=== PATIENT | male | born 1965 | race Caucasian/White ===

== ENCOUNTER 2019-09-30 05:27 | Inpatient (IN) | payer OTHER ==
--- NOTE | 2019-09-30 05:44 | PDOC ---
History of Present Illness - General Chief Complaint: Pain Stated Complaint: ABDOMINAL PAIN Time Seen by Provider: 09/30/19 05:28 - History of Present Illness Initial Comments: 09/30/19 05:45 This 53-year-old man with a history of HTN/HLD presents with few hour history of epigastric/periumbilical pain. Patient states that he was awakened approximately 2 AM with the pain. He had no discomfort when he went to bed at 11 PM. He denies nausea/vomiting/diarrhea. He has had no recent fever or chills. Pain is steady and does not radiate to his back or legs. No recent unusual food ingestion or travel. He had taken "Tums" at home without relief. No chest pain or shortness of breath. No history of coronavirus infection. Medications as noted below Non-smoker No daily alcohol/other recreational drug No known allergies Past History - Medical History Allergies/Adverse Reactions: Allergies Allergy/AdvReac Type Severity Reaction Status Date / Time No Known Allergies Allergy Verified 09/30/19 05:28 Home Medications: Ambulatory Orders Atorvastatin Ca [Lipitor] 20 mg PO DAILY 09/30/19 Furosemide [Lasix] 20 mg PO DAILY 09/30/19 Metoprolol Succinate [Toprol Xl] 200 mg PO DAILY 09/30/19 Olmesartan Medoxomil 40 mg PO DAILY 09/30/19 HTN: Yes (on medication) Hypercholesterolemia: Yes (No medication just "diet" and exercise) - Surgical History Orthopedic Surgery: Yes (2 lower back surgeries) - Psycho-Social/Smoking History Smoking Status: No Smoking History: Never smoked Number of Cigarettes Smoked Daily: 0 Review of Systems - Review of Systems Able to Perform ROS?: Yes Comments:: 12 point review of systems is negative except for what is noted in the history of present illness *Physical Exam - Physical Exam GENERAL: Adult male, alert and oriented x3, no acute distress HEAD: Normal with no signs of trauma. EYES: PERRLA, EOMI, sclera anicteric, conjunctiva clear. ENT: Ears normal, nares patent, oropharynx clear without exudates. Dry mucous membranes. NECK: Normal range of motion, supple without lymphadenopathy, JVD, or masses. LUNGS: Breath sounds equal, clear to auscultation bilaterally. No wheezes, and no crackles. HEART:Regular rate and rhythm, normal S1 and S2 without murmur, rub or gallop. ABDOMEN:.normal bowel sounds . Distended, soft, mild epigastric tenderness without guarding or rebound, no masses Bilateral palpable femoral pulses EXTREMITIES: Normal range of motion, no edema. No clubbing or cyanosis. No erythema, or tenderness. NEUROLOGICAL: Cranial nerves II through XII grossly intact. Normal speech. No focal neurological deficits. MUSCULOSKELETAL: Back non-tender to palpation, no CVA tenderness SKIN: Warm, Dry, normal turgor, no rashes or lesions noted. Twelve-lead electrocardiogram is performed: Sinus bradycardia 53 bpm; first- degree AV block with SD interval of [address] or T wave abnormalities. No acute cardiac arrhythmia noted ED Treatment Course - LABORATORY CBC & Chemistry Diagram: 09/30/19 05:55 09/30/19 05:55 ED Progress Note - Progress Note Progress Note: Case signed out to Dr Lam at end of shift. Discharge - Discharge Information Problems reviewed: Yes Clinical Impression/Diagnosis: Acute appendicitis Qualifiers: Acute appendicitis type: with localized peritonitis Appendicitis gangrene presence: without gangrene Appendicitis perforation presence: without perforation Appendicitis abscess presence: without abscess Qualified Code(s): K35.30 - Acute appendicitis with localized peritonitis, without perforation or gangrene - Follow up/Referral - Patient Discharge Instructions - Post Discharge Activity
[2019-09-30 06:14] VITALS: BMI 36.3
[2019-09-30] MEDS ORDERED: FAMOTIDINE 20 MG/50 ML IVPB 20 MG/50 ML MG IVPB ONE ×2 (06:21→06:22)
[2019-09-30] MEDS ORDERED: SODIUM CHLORIDE 500 ML IV STA ×2 (06:22→08:26)
--- NOTE | 2019-09-30 07:18 | PDOC ---
*Physical Exam - Vital Signs Last Vital Signs Temp Pulse Resp BP Pulse Ox 98.3 F 56 L 16 121/69 95 09/30/19 05:54 09/30/19 05:54 09/30/19 05:54 09/30/19 05:54 09/30/19 05:54 ED Treatment Course - LABORATORY CBC & Chemistry Diagram: 09/30/19 05:55 09/30/19 05:55 - Medications Given in the ED: ED Medications Discontinued Medications Generic Name Dose Route Start Last Admin Trade Name Leni PRN Reason Stop Dose Admin Famotidine/Sodium Chloride 20 mg in 50 mls @ 100 mls/hr 09/30/19 06:21 09/30/19 06:27 Pepcid 20 Mg Premixed Ivpb - IVPB 09/30/19 06:50 100 mls/hr ONCE ONE Administration Medical Decision Making - Medical Decision Making 09/30/19 08:11 Patient awoke at 2 AM with abdominal pain. Describes continuous, diffuse pain but worse in the right lower quadrant. Ate supper at approximately 8 PM, also had 2 beers and a glass of wine. Denies nausea, vomiting, or diarrhea. Normal bowel movement yesterday. Denies urinary symptoms including dysuria frequency urgency hesitancy or hematuria. Denies prior GI disease, or abdominal surgery. Exam elicits localized tenderness and guarding right lower quadrant, suggestion of rebound. remainder physical is normal. Suggestive of early appendicitis or right-sided diverticulitis. CT and further evaluation. 09/30/19 08:27 EKG was reviewed. Sinus bradycardia with first-degree AV block. No ST-T wave changes. Otherwise normal EKG.. The patient is on 200 mg of metoprolol daily, probably resulting in the mild bradycardia. The only other EKG available is from August 2004 which was normal, although the GA interval was borderline at 200 ms. 09/30/19 11:13 Dr. Booker, radiologist, reads the CT as acute appendicitis. Patient informed. Primary physician Dr. Sequeira contacted and surgery consult initiated 09/30/19 11:[address] Sequeira, PCP. Recommended consult with , surgery. Dr. Elmore was contacted by phone, will see patient in consultation today. Moraima Cross, [facility], contacted for admission. She will admit the patient and facilitate the transfer for surgery. 09/30/19 14:12 Patient remains clinically and hemodynamically stable. Ambulating without difficulty. Pain controlled without medication. Awaiting transfer. Discharge - Discharge Information Problems reviewed: Yes Clinical Impression/Diagnosis: Acute appendicitis Qualifiers: Acute appendicitis type: with localized peritonitis Appendicitis gangrene presence: without gangrene Appendicitis perforation presence: without perforation Appendicitis abscess presence: without abscess Qualified Code(s): K35.30 - Acute appendicitis with localized peritonitis, without perforation or gangrene - Admission Yes - Follow up/Referral - Patient Discharge Instructions - Post Discharge Activity
[2019-09-30 07:25] LABS: LIPASE 111 U/L (73-393)
[2019-09-30 07:53] LABS: BASO % 0.6 % (0-2.0); EOS % 0.9 % (0-4.5); HEMATOCRIT 42.3 % (35.4-49); HEMOGLOBIN 14.5 GM/dL (11.7-16.9); LYMPH % 12.5 % (8-40); MCHC 34.2 g/dl (32.0-35.9); MEAN CELL VOLUME 90.6 fl (80-96); MEAN PLT VOLUME 8.9 fl (7.5-11.1); MONO % 3.9 % (3.8-10.2); NEUT % 82.1 % (42.8-82.8); PLATELET COUNT 171 K/MM3 (134-434); RBC 4.67 M/mm3 (4.00-5.60); RDW 12.8 % (11.9-15.9); WHITE BLOOD COUNT 10.5 K/mm3 (4.0-10.0)
[2019-09-30 08:04] LABS: PH,URINE 6.5 (5.0-8.0); URINE APPEARANCE CLEAR; URINE BILIRUBIN NEGATIVE (NEGATIVE); URINE COLOR YELLOW; URINE GLUCOSE (UA) NEGATIVE (NEGATIVE); URINE KETONE 1+ (NEGATIVE); URINE LEUK ESTERASE NEGATIVE (NEGATIVE); URINE NITRITE NEGATIVE (NEGATIVE); URINE PROTEIN NEGATIVE (NEGATIVE)
[2019-09-30 08:12] LABS: ALK PHOS 42 U/L (45-117); ANION GAP 8 MMOL/L (8-16); BILIRUBIN,TOTAL 0.4 mg/dL (0.2-1); BLOOD UREA NITROGEN 16.4 mg/dL (7-18); CALCIUM 9.5 mg/dL (8.5-10.1); CHLORIDE 102 mmol/L (98-107); CO2 28 mmol/L (21-32); GLUCOSE,RANDOM 130 mg/dL (74-106); POTASSIUM 4.1 mmol/L (3.5-5.1); SGOT/AST 25 U/L (15-37); SGPT/ALT 39 U/L (13-61); SODIUM 139 mmol/L (136-145); TOT PROT 7.3 g/dl (6.4-8.2)
--- NOTE | 2019-09-30 10:39 | EKG ---
Test Reason : Blood Pressure : / mmHG Vent. Rate : 053 BPM Atrial Rate : 053 BPM P-R Int : 216 ms QRS Dur : 108 ms QT Int : 442 ms P-R-T Axes : 033 -02 039 degrees QTc Int : 414 ms SINUS BRADYCARDIA WITH 1ST DEGREE A-V BLOCK OTHERWISE NORMAL ECG NO PREVIOUS ECGS AVAILABLE Confirmed by Jean Moreno MD ([id number]) on 09/30/2019 10:39:13 AM Referred By: MARIELY KIM Confirmed By:Jean Moreno MD
[2019-09-30] MEDS ORDERED: LACTATED RINGERS SOLUTION 1,000 ML IV SCH (12:45)
--- NOTE | 2019-09-30 12:48 | HP ---
CHIEF COMPLAINT: Abdominal pain PCP: Dr. Sequeira HISTORY OF PRESENT ILLNESS: 53 year-old male with a PMH significant for HTN and HLD, was awoke from sleep early this morning with pain from the epigastric area to the umbilicus. Over several hours the pain became more focal to the RLQ. He had no nausea or vomiting. On arrival to the ED he had an episode of sweats. His last meal was 8pm last night accompanied by 2 beers and a glass of wine. ED course (1) HR 50s (2) WBC 10.5k (3) CT: acute appendicitis Recent Travel: No PAST MEDICAL HISTORY: Hypertension Hyperlipidemia PAST SURGICAL HISTORY: Lower back surgeries x 3 Social History: works as insurance biller, has been working from home other than 3 site visits over the past several months; and daughter also been working from home and limiting social contacts Smoking: never Alcohol: social Drugs: no Family history: Mother Alzheimers; father metastatic melanoma and stomach cancer; 7 siblings reviewed, non-contributory; one daughter a&w Allergies No Known Allergies Allergy (Verified 09/30/19 05:28) HOME MEDICATIONS: Home Medications Medication Instructions Recorded Furosemide [Lasix] 20 mg PO DAILY 09/30/19 Metoprolol Succinate [Toprol Xl] 200 mg PO DAILY 09/30/19 Olmesartan Medoxomil 40 mg PO DAILY 09/30/19 REVIEW OF SYSTEMS CONSTITUTIONAL: Absent: fever, chills, diaphoresis, generalized weakness, malaise, loss of appetite, weight change HEENT: Absent: rhinorrhea, nasal congestion, throat pain, throat swelling, difficulty swallowing, mouth swelling, ear pain, eye pain, visual changes CARDIOVASCULAR: Absent: chest pain, syncope, palpitations, irregular heart rate, lig htheadedness, peripheral edema RESPIRATORY: Absent: cough, shortness of breath, dyspnea with exertion, orthopnea, wheezing, stridor, hemoptysis GASTROINTESTINAL: +abdominal pain Absent: abdominal distension, nausea, vomiting, diarrhea, constipation, melena, hematochezia GENITOURINARY: Absent: dysuria, frequency, urgency, hesitancy, hematuria, flank pain, genital pain MUSCULOSKELETAL: Absent: myalgia, arthralgia, joint swelling, back pain, neck pain SKIN: Absent: rash, itching, pallor HEMATOLOGIC/IMMUNOLOGIC: Absent: easy bleeding, easy bruising, lymphadenopathy, frequent infections ENDOCRINE: Absent: unexplained weight gain, unexplained weight loss, heat intolerance, cold intolerance NEUROLOGIC: Absent: headache, focal weakness or paresthesias, dizziness, unsteady gait, seizure, mental status changes, bladder or bowel incontinence PSYCHIATRIC: Absent: anxiety, depression, suicidal or homicidal ideation, hallucinations. PHYSICAL EXAMINATION Vital Signs - 24 hr 09/30/19 09/30/19 05:54 11:37 Temperature 98.3 F 98.4 F Pulse Rate 56 L Pulse Rate [ 55 L Right] Respiratory 16 17 Rate Blood Pressure 121/69 Blood Pressure 131/57 L [Left Arm] O2 Sat by Pulse 95 98 Oximetry (%) GENERAL: Awake, alert, and fully oriented, in no acute distress. HEAD: Normal with no signs of trauma. EYES: Pupils equal, round and reactive to light, extraocular movements intact, sclera anicteric, conjunctiva clear. No lid lag. LUNGS: Breath sounds equal, clear to auscultation bilaterally. No wheezes, and no crackles. No accessory muscle use. HEART: Regular rate and rhythm, normal S1 and S2 ABDOMEN: RLQ tenderness, +guarding MUSCULOSKELETAL: Normal range of motion at all joints. No bony deformities or tenderness. No CVA tenderness. UPPER EXTREMITIES: 2+ pulses, warm, well-perfused. No cyanosis. No clubbing. No peripheral edema. LOWER EXTREMITIES: 2+ pulses, warm, well-perfused. No calf tenderness. No peripheral edema. NEUROLOGICAL: Cranial nerves II-XII intact. Normal speech. Normal gait. PSYCHIATRIC: Cooperative. Good eye contact. Appropriate mood and affect. SKIN: Warm, dry, normal turgor, no rashes or lesions noted, normal capillary refill. Laboratory Results - last 24 hr 09/30/19 09/30/19 09/30/19 05:55 05:55 05:55 WBC 10.5 H RBC 4.67 Hgb 14.5 Hct 42.3 MCV 90.6 MCH 31.0 MCHC 34.2 RDW 12.8 Plt Count 171 MPV 8.9 Absolute Neuts (auto) 8.6 H Neutrophils % 82.1 Lymphocytes % 12.5 Monocytes % 3.9 Eosinophils % 0.9 Basophils % 0.6 Nucleated RBC % 0 Sodium 139 Potassium 4.1 Chloride 102 Carbon Dioxide 28 Anion Gap 8 BUN 16.4 Creatinine 1.0 Est GFR (CKD-EPI)AfAm 97.77 Est GFR (CKD-EPI)NonAf 84.35 Random Glucose 130 H Calcium 9.5 Total Bilirubin 0.4 AST 25 ALT 39 Alkaline Phosphatase 42 L Creatine Kinase 192 Creatine Kinase Index 0.6 CK-MB (CK-2) 1.2 Troponin I < 0.02 Total Protein 7.3 Albumin 4.0 Lipase 111 Urine Color Yellow Urine Appearance Clear Urine pH 6.5 Ur Specific [place] 1.030 Urine Protein Negative Urine Glucose (UA) Negative Urine Ketones 1+ H Urine Blood Negative Urine Nitrite Negative Urine Bilirubin Negative Urine Urobilinogen 1.0 Ur Leukocyte Esterase Negative ASSESSMENT/PLAN: 53 year-old male with a PMH significant for HTN and HLD, admitted for acute appendicitis. Acute appendicitis --09/29 CT: acute appendicitis; no sign of abscess --plan is to OR today with Dr. Roca --perioperative antibiotics per surgery Hypertension Bradycardia -on 3 anti-hypertensives: ToprolXL, olmesartan, Lasix --normotensive now, HR is 50s perpahps due to high dose ToprolXL 200mg daily; patient reports no symptoms of lightheadedness, weakness, palpitations --continue home meds Hyperlipidemia --continue atorvastatin FEN Fluids: LR@100mL/hr Electrolytes: replete as indicated Nutrition: NPO DVT prophylaxis: SCDs Dispo: continues to require inpatient care. Full code. Visit type - Emergency Visit Emergency Visit: Yes ED Registration Date: 09/30/19 Care time: The patient presented to the Emergency Department on the above date and was hospitalized for further evaluation of their emergent condition. - New Patient This patient is new to me today: Yes Date on this admission: 09/30/19 - Critical Care Critical Care patient: No
[2019-09-30] MEDS ORDERED: ACETAMINOPHEN 1000 MG/100 ML VIAL (NON FORMULARY) IVPB PRN ×2 (12:51→19:12)
[2019-09-30] MEDS ORDERED: fentaNYL CITRATE 250 MCG/5 ML VIAL ONE (17:15)
[2019-09-30] MEDS ORDERED: LIDOCAINE HCL/PF 2% SDV 5ML VIAL ONE (17:15)
[2019-09-30] MEDS ORDERED: ROCURONIUM BROMIDE 50 MG/5 ML SYRINGE ONE (17:26)
[2019-09-30] MEDS ORDERED: ceFAZolin SODIUM 1 GM VIAL IVPB ONE (17:31)
[2019-09-30] MEDS ORDERED: KETOROLAC TROMETHAMINE 30 MG/1 ML VIAL ONE (17:42)
[2019-09-30] MEDS ORDERED: DEXAMETHASONE SOD PHOSPHATE 4 MG/1 ML VIAL ONE (17:42)
[2019-09-30] MEDS ORDERED: NEOSTIGMINE METHYLSULFATE 0.5 MG/ML - 10 ML MDV ONE (18:03)
[2019-09-30] MEDS ORDERED: GLYCOPYRROLATE 0.2 MG/1 ML VIAL ONE ×2 (18:03)
[2019-09-30] MEDS ORDERED: oxyCODONE HCL 5 MG TABLET PO PRN ×2 (18:19→19:14)
[2019-09-30] MEDS ORDERED: ONDANSETRON 4 MG/2 ML VIAL IVPUSH PRN (18:19)
[2019-09-30] MEDS ORDERED: PROMETHAZINE HCL 25 MG/1 ML VIAL IVPUSH PRN (18:19)
--- NOTE | 2019-09-30 18:30 | OP ---
Operative Note - Note: Operative Date: 09/30/19 Pre-Operative Diagnosis: acute appendicitis Operation: laparoscopic appendectomy Findings: perforated appendicitis with a free floating appendicallith Implants: perforated appendicitis Post-Operative Diagnosis: Other Surgeon: Wade Roca Anesthesia: General Specimens Removed: APPENDIX AD APPENDICAL LITH Estimated Blood Loss (mls): 2 Operative Report Dictated: Yes
[2019-09-30] MEDS ORDERED: KETOROLAC TROMETHAMINE 30 MG/1 ML VIAL IVPUSH PRN (18:34)
[2019-09-30] MEDS ORDERED: ONDANSETRON 4 MG/2 ML VIAL ONE (19:10)
[2019-09-30] MEDS ORDERED: PIPERACILLIN/TAZOBACTAM 4.5 GM VIAL IVPB ONE (20:23)
[2019-09-30] MEDS ORDERED: DEXTROSE 5%-WATER 100 ML IVPB ONE (20:23)
[2019-09-30] MEDS: PIPERACILLIN/TAZOB 4.5 GM 4.5 GM in DEXTROSE 5%-WATER 100 ML IVPB SCH (20:35)
[2019-09-30] MEDS ORDERED: PIPERACILLIN/TAZOB 4.5 GM 4.5 GM in DEXTROSE 5%-WATER 100 ML IVPB SCH (21:00)
[2019-09-30] MEDS: LACTATED RINGERS SOLUTION 1,000 ML/1,000 ML INFUS.BAG IV SCH (22:46)
[2019-10-01] MEDS ORDERED: PIPERACILLIN/TAZOBACTAM 4.5 GM VIAL IVPB ONE ×3 (03:42→14:22)
[2019-10-01] MEDS ORDERED: DEXTROSE 5%-WATER 100 ML IVPB ONE ×3 (03:43→14:22)
[2019-10-01] MEDS: PIPERACILLIN/TAZOB 4.5 GM 4.5 GM in DEXTROSE 5%-WATER 100 ML IVPB SCH ×3 (03:45→14:43)
[2019-10-01] MEDS: LACTATED RINGERS SOLUTION 1,000 ML/1,000 ML INFUS.BAG IV SCH (03:50)
--- NOTE | 2019-10-01 07:26 | PN ---
Progress Note (short form) - Note Progress Note: GENERAL SURGERY POD #1 s/p laparoscopic appendectomy (intraop findings: perforated appendicitis with a free floating appendicallith) No acute events since surgery per RN notes. He is OOB and ambulating unassisted to the bathroom (voiding spontaneously) Tolerating clears. Denies n/v/f/c, CP, palpitations, SOB or MAX Last Vital Signs Temp Pulse Resp BP Pulse Ox 98.3 F 50 L 18 120/65 92 L 10/01/19 06:00 10/01/19 06:00 10/01/19 06:00 10/01/19 06:00 09/30/19 21:00 CBC 09/30/19 05:55 Gen: nad Pulm: unlabored respirations on RA ABD: obese habitus. all surgical ports c/d/i LE: all compartments soft Problem List - Problems (1) Acute appendicitis Assessment/Plan: POD # 1 s/p lap appy (perforated appy w/ free floating appendocolith) Patient wants to be discharged. Advised him that given the intraop findings he should stay one more day and continue IV ABX as he is at risk for developing intrabd abscess. Dr. Roca to see patient later today and make final decision. - reg diet - oob and ambulate - tylenol for fever > 100.4F - iv abx - pain management prn Code(s): K35.80 - UNSPECIFIED ACUTE APPENDICITIS Qualifiers: Acute appendicitis type: with localized peritonitis Appendicitis gangrene presence: without gangrene Appendicitis perforation presence: without perforation Appendicitis abscess presence: without abscess Qualified Code(s): K35.30 - Acute appendicitis with localized peritonitis, without perforation or gangrene
[2019-10-01 07:53] LABS: HEMATOCRIT 38.6 % (35.4-49); HEMOGLOBIN 13.3 GM/dL (11.7-16.9); MCH 31.4 pg (25.7-33.7); MCHC 34.4 g/dl (32.0-35.9); MEAN CELL VOLUME 91.3 fl (80-96); MEAN PLT VOLUME 9.1 fl (7.5-11.1); PLATELET COUNT 148 K/MM3 (134-434); RBC 4.23 M/mm3 (4.00-5.60); RDW 12.6 % (11.9-15.9); WHITE BLOOD COUNT 9.4 K/mm3 (4.0-10.0)
[2019-10-01 07:56] LABS: BASO % 0.3 % (0-2.0); HEMATOCRIT 38.8 % (35.4-49); HEMOGLOBIN 13.3 GM/dL (11.7-16.9); LYMPH % 10.7 % (8-40); MCH 31.4 pg (25.7-33.7); MCHC 34.4 g/dl (32.0-35.9); MEAN CELL VOLUME 91.3 fl (80-96); MEAN PLT VOLUME 8.8 fl (7.5-11.1); MONO % 5.6 % (3.8-10.2); NEUT % 83.4 % (42.8-82.8); PLATELET COUNT 147 K/MM3 (134-434); RBC 4.25 M/mm3 (4.00-5.60); RDW 12.6 % (11.9-15.9); WHITE BLOOD COUNT 9.7 K/mm3 (4.0-10.0)
[2019-10-01 08:38] LABS: ALBUMIN 3.5 g/dl (3.4-5.0); BILIRUBIN,TOTAL 0.9 mg/dL (0.2-1); BLOOD UREA NITROGEN 15.9 mg/dL (7-18); CALCIUM 8.8 mg/dL (8.5-10.1); CREATININE 1.1 mg/dL (0.55-1.3); MAGNESIUM 2.1 mg/dL (1.8-2.4); POTASSIUM 4.1 mmol/L (3.5-5.1); TOT PROT 6.5 g/dl (6.4-8.2)
[2019-10-01] MEDS ORDERED: LOSARTAN POTASSIUM 50 MG TABLET (FP) PO SCH (10:00)
--- NOTE | 2019-10-01 10:19 | PN ---
Progress Note (short form) - Note Progress Note: POD #1 s/p laparoscopic appendectomy under GETA. Doing well, mild sore throat, pain controlled, denies nausea or vomiting. All questions answered.
--- NOTE | 2019-10-01 11:30 | OP ---
DATE OF OPERATION: 09/30/2019 PREOPERATIVE DIAGNOSIS: Acute appendicitis. POSTOPERATIVE DIAGNOSIS: Perforated acute appendicitis. PROCEDURE: Laparoscopic appendectomy. FINDINGS: Perforated suppurative acute appendicitis with a free-floating appendicolith and pus in the pelvis cul-de-sac. SURGEON: Wade Nagel MD ANESTHESIA: General. BLOOD LOSS: Minimal. COMPLICATIONS: None. Patient tolerated the procedure well. INDICATIONS: This is a 53-year-old male who presents with acute onset of abdominal pain which struck in the middle of the night. He presented sometime this morning to the emergency room. I was called somewhere around 12:00, at noon time. The operating room was available at around 4:30 in the afternoon, and the procedure was then begun around 5:30. CAT scan was consistent with acute appendicitis, as well as the physical exam. Risks and benefits were discussed with the patient, and he agreed to proceed with the plan for surgical appendectomy which was performed laparoscopically. DESCRIPTION OF PROCEDURE: In the OR he was placed in supine position. After induction of general anesthesia, he was prepped and draped in the usual sterile fashion. Of note, he has what appeared to be an incarcerated umbilical hernia, and given his obesity, a decision was made not to repair this and leave the chronic incarceration in place, and then we would go ahead and perform the appendectomy. As a result, was placed a port in a different position, epigastric position, to avoid the umbilicus. This was done by placing a Veress needle first and insufflation to pressure of 15 mmHg. A 5-mm port was then introduced here under Optiview control. Two other ports were introduced, one in suprapubic position and one in the left lower quadrant using dilating trocar, 12-mm port. The patient was then positioned in Trendelenburg position and appendix was identified. It appeared to be densely adhesed to the lateral pelvic wall. Dissection was done using the LigaSure to liberate the appendix and its adhesions, and the mesoappendix was then divided using LigaSure and skeletonized to the base of the appendix, and a stapler, purple Covidien 60-mm staple was then fired across the base of the appendix with small cuff of cecum to resect the full length of the appendix. Appendix was placed in an EndoCatch bag. The free-floating appendicolith was identified early in the operation and removed, and the right lower quadrant and pelvis were irrigated. Of note, there was purulent material found in the cul-de-sac which was aspirated and then irrigated copiously. The specimen was brought out through the left lower quadrant port without need for dilation. The 5-mm ports were all removed under direct vision. The skin was closed with 4-0 Monocryl at all port sites . Dermabond was applied and the patient was returned to the recovery room awake and alert, in stable condition. He tolerated the procedure well. WADE NAGEL M.D. [id number]
--- NOTE | 2019-10-01 14:46 | PN ---
Progress Note, Physician Chief Complaint: feeling better History of Present Illness: sp appendectomy - Current Medication List Current Medications: Active Medications Acetaminophen (Ofirmev Injection -) 1,000 mg IVPB Q6H PRN PRN Reason: PAIN LEVEL 6-10 Stop: 10/01/19 19:12 Atorvastatin Calcium (Lipitor -) 20 mg PO HS YOANA Piperacillin Sod/Tazobactam (Sod 4.5 gm/ Dextrose) 100 mls @ 200 mls/hr IVPB Q6H-IV YOANA; Protocol Piperacillin Sod/Tazobactam (Sod 4.5 gm/ Dextrose) 100 mls @ 200 mls/hr IVPB Q6H-IV YOANA; Protocol Stop: 10/01/19 15:29 Last Admin: 10/01/19 14:43 Dose: 200 mls/hr Documented by: Lactated Ringer's (Lactated Ringers Solution) 1,000 ml in 1,000 mls @ 83 mls/hr IV ASDIR [facility] Last Admin: 10/01/19 03:50 Dose: 83 mls/hr Documented by: Ketorolac Tromethamine (Toradol Injection -) 30 mg IVPUSH Q6H PRN PRN Reason: PAIN LEVEL 6-10 Stop: 10/05/19 18:33 Losartan Potassium (Cozaar -) 100 mg PO DAILY [facility] Last Admin: 10/01/19 09:44 Dose: 100 mg Documented by: Metoprolol Succinate (Toprol Xl -) 200 mg PO DAILY [facility] Last Admin: 10/01/19 09:52 Dose: Not Given Documented by: Oxycodone HCl (Roxicodone -) 5 mg PO Q6H PRN PRN Reason: PAIN LEVEL 6-10 - Objective Vital Signs: Vital Signs Temperature 97.9 F 10/01/19 10:00 Pulse Rate 56 L 10/01/19 10:00 Respiratory Rate 18 10/01/19 10:00 Blood Pressure 123/61 10/01/19 10:00 O2 Sat by Pulse Oximetry (%) 96 10/01/19 09:00 Labs: CBC, BMP 10/01/19 06:00 10/01/19 06:00 Problem List - Problems (1) Acute appendicitis Code(s): K35.80 - UNSPECIFIED ACUTE APPENDICITIS Qualifiers: Acute appendicitis type: with localized peritonitis Appendicitis gangrene presence: without gangrene Appendicitis perforation presence: without perforation Appendicitis abscess presence: without abscess Qualified Code(s): K35.30 - Acute appendicitis with localized peritonitis, without perforation or gangrene Assessment/Plan s/p lap appendectomy doing well, afebrile exam benign incisions clean Clear for discharge follow up next week recommend 10 days of antibiotics
[2019-10-01 15:01] VITALS: BP 131/59; PULSE 62; TEMP 98.5
--- NOTE | 2019-10-01 18:12 | DS ---
Physical Exam: SUBJECTIVE: 53 year old male patient with past medical history of HTN and HLD who presented with severe epigastric/periumbilical pain that woke him from his sleep. He was diagnosed with appendicitis on imaging and found to have a perforated appendicitis in surgery. He was put on IV Zosyn after the surgery. Patient seen and examined at bedside. POD 1 after the laparoscopic appendectomy. The patient denied nausea, vomiting, fever, or chills. He is tolerating his diet of clears. OBJECTIVE: Vital Signs Period Temp Pulse Resp BP Sys/Villegas Pulse Ox Last 24 Hr 97.9 F-99.2 F 50-88 16-18 120-137/53-69 92-100 PHYSICAL EXAM GENERAL: The patient is awake, alert, and fully oriented, in no acute distress. HEAD: Normal with no signs of trauma. EYES: Extraocular movements intact. ENT: Ears normal, nares patent, moist mucous membranes. NECK: Trachea midline, full range of motion, supple. LUNGS: Breath sounds equal, clear to auscultation bilaterally, no wheezes, no crackles, no accessory muscle use. HEART: Regular rate and rhythm, S1, S2 without murmur, rub or gallop. ABDOMEN: Incision site closed with rekha with no purulent discharge or redness. Mild bruising around the incision site. No pain on palpation in all 4 quadrants. Soft, nondistended, normoactive bowel sounds, no rebound. EXTREMITIES: Warm, well-perfused, no edema. NEUROLOGICAL: Normal speech, gait not observed. PSYCH: Normal mood, normal affect. SKIN: Warm, dry, normal turgor. LABS Laboratory Results - last 24 hr 10/01/19 10/01/19 10/01/19 06:00 06:00 06:00 WBC 9.7 9.4 RBC 4.25 4.23 Hgb 13.3 13.3 Hct 38.8 38.6 MCV 91.3 91.3 MCH 31.4 31.4 MCHC 34.4 34.4 RDW 12.6 12.6 Plt Count 147 148 MPV 8.8 9.1 Absolute Neuts (auto) 8.1 H Neutrophils % 83.4 H Lymphocytes % 10.7 Monocytes % 5.6 Eosinophils % 0.0 D Basophils % 0.3 Nucleated RBC % 0 Sodium 138 Potassium 4.1 Chloride 103 Carbon Dioxide 25 Anion Gap 10 BUN 15.9 Creatinine 1.1 Est GFR (CKD-EPI)AfAm 87.13 Est GFR (CKD-EPI)NonAf 75.17 Random Glucose 120 H Calcium 8.8 Magnesium 2.1 Total Bilirubin 0.9 AST 23 ALT 29 Alkaline Phosphatase 36 L Total Protein 6.5 Albumin 3.5 HOSPITAL COURSE: Date of Admission:09/30/19 53 year old male patient with past medical history of HTN and HLD who presented with severe epigastric/periumbilical pain that woke him from his sleep. He was diagnosed with appendicitis on imaging and found to have a perforated appendicitis in surgery. He was put on IV Zosyn after the surgery. 1. Acute Perforated Appendicitis - Medically optimized and surgically cleared for discharge on 10 additional days of Augmentin as recommended by Surgery 2. HTN - Patient is now on Metoprolol, Olmesartan, and Lasix. - HCTZ was held on discharge due to concomitant use of Lasix. - Patient was recommended to follow up with PCP for blood pressure monitoring and further titration of blood pressure medications Date of Discharge: 10/01/19 Minutes to complete discharge: 38 Discharge Summary Problems reviewed: Yes Reason For Visit: ACUTE APPENDICITIS Condition: Stable - Instructions Diet, Activity, Other Instructions: You were admitted to the hospital with abdominal pain. While you were in the hospital, you were evaluated with lab work, blood work, imaging including a CT scan of your abdomen. We found that your symptoms were caused by inflammation of your appendix, called appendicitis. You had your appendix removed in a laparoscopic appendectomy surgery. We treated you with antibiotics and your symptoms improved. During your stay, an ECG of your heart found an abnormality called a first degree AV block. Please follow up with your primary care physician to repeat EKG. Medications: Please take the following medications as prescribed Please STOP taking Hydrochlorothiazide, follow up with your primary care physician to reassess the need to continue HCTZ after discharge Please Continue taking Lasix, Olmesartan, Lasix, Atorvastatin, Metoprolol To complete the treatment of your appendicitis, please take the following medications as instructed: Augmentin 875mg twice daily per mouth for 10 more days starting tomorrow 10/02/2019 until 10/11/2019. Follow ups: Please continue all your medications as prescribed Please follow up with your primary care physician Dr. Jameel Sequeira within one week to reassess the need to use Hydrochlorothiazide. Please follow up with your surgeon, Dr. Wade Roca, within one week to examine the healing of the surgical incision. Return to the emergency room if you experience any worsening of your symptoms, chest pain, abdominal pain, or any worsening of your condition. Referrals: Jameel Sequeira MD [Staff Physician] - 1 Week (Evaluate for 1st degree AV heart block) Wade Roca [Staff Physician] - 1 Week Disposition: HOME - Home Medications Comprehensive Discharge Medication List: Ambulatory Orders Atorvastatin Ca [Lipitor] 20 mg PO DAILY 09/30/19 Furosemide [Lasix] 20 mg PO DAILY 09/30/19 Metoprolol Succinate [Toprol Xl] 200 mg PO DAILY 09/30/19 Amox-Tr/K Cl [Augmentin - 875Mg Tablet] 1 tab PO BID #20 tablet 10/01/19 Olmesartan Medoxomil [Benicar (Nf)] 40 mg PO DAILY 10/01/19 This patient is new to me today: No Emergency Visit: Yes ED Registration Date: 09/30/19 Care time: The patient presented to the Emergency Department on the above date and was hospitalized for further evaluation of their emergent condition. Critical Care patient: No - Discharge Referral Referred to [facility] Med P.C.: No ATTENDING PHYSICIAN STATEMENT I saw and evaluated the patient. I reviewed the resident's note and discussed the case with the resident. I agree with the resident's findings and plan as documented. SUBJECTIVE: OBJECTIVE: ASSESSMENT AND PLAN:
--- NOTE | 2019-10-01 18:14 | PN ---
Teaching Attending Note Name of Resident: Theo Mcclelland ATTENDING PHYSICIAN STATEMENT I saw and evaluated the patient. I reviewed the resident's note and discussed the case with the resident. I agree with the resident's findings and plan as documented. SUBJECTIVE: Feeling much improved. Tolerating oral intake. No fever/chills/nausea/vomiting. OBJECTIVE: Afebrile, Hemodynamically Stable. Last Vital Signs Temp Pulse Resp BP Pulse Ox 98.5 F 62 18 131/59 L 96 10/01/19 15:00 10/01/19 15:00 10/01/19 15:00 10/01/19 15:00 10/01/19 09:00 HEENT - Atramatic, Normocephalic. Heart - S1, S2, RRR Lungs - clear to auscultation Abdomen - Soft, mild tenderness around trochar site. Bowel Sounds normal. Extremities - no edema, no calf tenderness. Laboratory Results - last 24 hr 10/01/19 10/01/19 10/01/19 06:00 06:00 06:00 WBC 9.7 9.4 RBC 4.25 4.23 Hgb 13.3 13.3 Hct 38.8 38.6 MCV 91.3 91.3 MCH 31.4 31.4 MCHC 34.4 34.4 RDW 12.6 12.6 Plt Count 147 148 MPV 8.8 9.1 Absolute Neuts (auto) 8.1 H Neutrophils % 83.4 H Lymphocytes % 10.7 Monocytes % 5.6 Eosinophils % 0.0 D Basophils % 0.3 Nucleated RBC % 0 Sodium 138 Potassium 4.1 Chloride 103 Carbon Dioxide 25 Anion Gap 10 BUN 15.9 Creatinine 1.1 Est GFR (CKD-EPI)AfAm 87.13 Est GFR (CKD-EPI)NonAf 75.17 Random Glucose 120 H Calcium 8.8 Magnesium 2.1 Total Bilirubin 0.9 AST 23 ALT 29 Alkaline Phosphatase 36 L Total Protein 6.5 Albumin 3.5 Discharge Medications Medication Instructions Recorded Atorvastatin Ca [Lipitor] 20 mg PO DAILY 09/30/19 Furosemide [Lasix] 20 mg PO DAILY 09/30/19 Metoprolol Succinate [Toprol Xl] 200 mg PO DAILY 09/30/19 Amox-Tr/K Cl [Augmentin - 875Mg 1 tab PO BID #20 tablet 10/01/19 Tablet] Olmesartan Medoxomil [Benicar (Nf)] 40 mg PO DAILY 10/01/19 ASSESSMENT AND PLAN: 53 year old male with history of HTN and HLD, presented with abdominal pain, found to have acute appendicitis. 1. Acute Appendicitis (perforated) CT A/P - Acute Appendicitis with intraluminal appendicoliths POD 1 s/p Laparoscopic Appendectomy complicated by appendiceal perforation with free floating purulent material. Currently afebrile, Hemodynamically Stable IV Zosyn given prior to Surgery - for discharge on 10 days Augmentin. 2. HTN - continue Metoprolol, Olmesartan. HCTZ held on discharge due to concomitant use of Lasix. For PCP follow up for BP monitoring and further titration of BP meds. 3. HLD - continue Lipitor. 4. On Lasix 20mg daily, reason unclear ?chronic diastolic CHF. No Echo on record at [facility]. Appears euvolemic, no evidence of fluid overload,normal renal function/electrolytes. Continue Lasix. HCTZ held. Further management by PCP. Medically optimized and surgically clear for discharge on 10 additional days of Augmentin as recommended by Surgery.
[2019-10-01] MEDS ORDERED: ATORVASTATIN CA 20 MG TABLET (FP) PO SCH (22:00)
--- NOTE | 2019-10-05 17:55 | PATH ---
Surgical Pathology Report Patient Name: FADUMO HERNANDEZ Med. Rec. #: [id number] /Age/Gender: 1965 (Age: 53) / M Account: [id number] Location: [facility] MED/SURG Taken: 09/30/2019 Received: 10/01/2019 Reported: 10/05/2019 Physicians: Fartun Santana M.D. Specimen(s) Received A: APPENDIX B: FECALITH Clinical History Perforated appendicitis Final Diagnosis A. APPENDIX, APPENDECTOMY: SEVERE ACUTE APPENDICITIS AND PERIAPPENDICITIS. B. FECALITH, REMOVAL: BENIGN FIBROUS CAPSULE WITH DYSTROPHIC CALCIFICATION IN THE CENTER. Electronically Signed Sriram Alvarez M.D. Gross Description A. Received in formalin, labeled "appendix," is a 7.5 cm. in length vermiform appendix with a stapled margin of resection and moderate attached fat. The serosa is carballo-cary with attached exudate. Sectioning reveals a focally hemorrhagic lumen. The wall of the appendix averages 0.1 cm. in thickness. Anodizer sections are submitted in one cassette. B. Received in formalin labeled "fecal leaf," is a 0.6 x 0.4 x 0.3 cm carballo, encapsulated mass, possibly consistent with a calculus. The specimen is bisected and entirely submitted in one cassette. DL/10/01/2019 saudi/10/01/2019
== END 2019-10-01 18:30 | disposition home or self-care (01) | DRG 340 ==
LOC: FER 05:27 → J7W 16:36
PROVIDERS: ADMIT Internal Medicine
PROC: 0DTJ4ZZ Resection of Appendix, Percutaneous Endoscopic Approach (ICD-10-PCS; principal; 2019-09-30 16:30)
DX: K35.32 Acute appendicitis with perforation, localized peritonitis, and gangrene, without abscess (principal); I10 Essential (primary) hypertension; E78.5 Hyperlipidemia, unspecified; R00.1 Bradycardia, unspecified; I44.0 Atrioventricular block, first degree
CPT/HCPCS: 36415; 71045-TC-FY; 74177-TC; 80048; 80053; 81003; 82550; 82553; 83690; 83735; 84484; 85025; 85027; 86850; 86900; 86901; 88302-TC; 88304-TC; 93005; 94010; 94760; 99285-25; Q9967; U0003